=== PATIENT | male | born 1945 | race Caucasian/White ===

== ENCOUNTER → 2016-10-10 | Outpatient (CLI) | payer OTHER ==
--- NOTE | 2016-10-10 10:11 | DI ---
INDICATION: ITS.REASON: DIAGNOSTIC IMAGING PROCEDURE: CHEST 2-VIEWS UPRIGHT (PA \T\ LAT) Encounter: Initial COMPARISON: None FINDINGS: The lungs are clear without evidence of focal abnormal airspace opacity. There is no pleural effusion or pneumothorax. The heart size is at the upper limits of normal to mildly enlarged. The mediastinal contours and pulmonary vascularity are within normal limits. 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 IMPRESSION: No acute cardiopulmonary disease. .
== END ==
LOC: IMA 08:42
DX: Z02.89 Encounter for other administrative examinations (principal)